=== PATIENT | female | born 1960 | race Caucasian/White ===

== ENCOUNTER 2017-11-05 13:20 | Outpatient (CLI) | payer OTHER ==
--- NOTE | 2017-11-05 15:32 | MMO ---
BILATERAL SCREENING MAMMOGRAM: Date: 11/05/17 INDICATION: Annual exam. COMPARISON: Prior exam dated 06/08/13 and 09/13/15. Diagnostic evaluation dated 07/01/13 was also reviewed. FINDINGS: Interpretation of this exam was assisted with computer-aided detection. There is a new focal asymmetry seen within the upper aspect of the right breast seen predominantly in the MLO projection in the mid to posterior depth. This is not localized on the CC projection. No pelon picious abnormality is seen within the left breast. There are benign-appearing calcifications bilater ally. IMPRESSION: BIRADS 0: Incomplete: Need Additional Imaging Evaluation and/or Prior Mammograms for Comparison New focal asymmetry within the upper aspect of the right breast, mid to posterior depth, seen only on the MLO projection, requires further evaluation. Recommend diagnostic mammographic evaluation with p otential for right breast ultrasound. The facility will notify patient of need for additional imaging services. POS: ABRAHAM
== END 2017-11-05 13:21 | disposition home or self-care (01) ==
LOC: SCSMAMMO 13:20
PROVIDERS: ATTEND Family Medicine
DX: Z12.31 Encounter for screening mammogram for malignant neoplasm of breast (principal)
CPT/HCPCS: 77067

== ENCOUNTER 2017-11-15 15:13 | Outpatient (CLI) | payer OTHER | END 2017-11-15 15:14 | disposition home or self-care (01) | LOC: BICMAMMO 15:13 | PROVIDERS: ATTEND Family Medicine | DX: Z12.31 Encounter for screening mammogram for malignant neoplasm of breast (principal); Z80.3 Family history of malignant neoplasm of breast | CPT/HCPCS: G0279 ==

== ENCOUNTER 2018-02-11 05:53 | Day surgery (SDC) | payer OTHER ==
[2018-02-10 14:02] VITALS: BMI 18.6
--- NOTE | 2018-02-11 03:40 | HP ---
SHORT STAY HISTORY AND PHYSICAL DATE OF ADMISSION: 02/11/2018 HISTORY OF PRESENT ILLNESS: This is a 57-year-old female comes for a colonoscopy for colon cancer screening. The patient has no specific GI symptoms. There is no family history of colon can cer. ALLERGIES: PENICILLIN. SOCIAL HISTORY: Patient does not smoke or drink alcohol. MEDICAL ILLNESSES: 1. Hypertension, not on any medication. 2. Post-traumatic stress disorder. 3. Migraine. 4. Anxiety-depression. 5. Hypothyroidism. 6. Hyperlipidemia. 7. Appendectomy. 8. Hysterectomy. 9. Bladder repair. 10. TMJ. 11. Knee surgery. PHYSICAL EXAMINATION: VITAL SIGNS: Pulse is 76, blood pressure in my office is very high at 170/110. This was almost a mo nth ago. HEENT: Conjunctivae clear. NECK: Supple. CARDIOVASCULAR SYSTEM: First and second heart sounds normal. LUNGS: Clear to auscultation. ABDOMEN: Soft to palpate. No organomegaly. No tenderness. No masses. EXTREMITIES: Reveal no edema. ADMITTING DIAGNOSIS: A 57-year-old female comes for a colonoscopy for colon cancer [place]
--- NOTE | 2018-02-11 08:55 | OP ---
DATE OF PROCEDURE: 02/11/2018 SURGEON: Mike Napier M.D. OPERATIVE PROCEDURE: Colonoscopy. PREOPERATIVE DIAGNOSIS: The patient is a 57-year-old female undergoing colonoscopy for colon cancer screening. POSTOPERATIVE DIAGNOSES: 1. Normal colonoscopy except hemorrhoids. 2. Tortuous and redundant colon with retained fecal material. PROCEDURE IN DETAIL: The patient was placed on her left lateral position and was given sedation by Anesthesia Department. A rectal exam was done before the scope was advanced into the rectum. No lesion felt on rectal exam. A Pentax video colonoscope was introduced into the rectum and advanced all the way into the cecum. The exam was difficult because of the fact that she had fecal material throughout the colon. Water was used to irrigate and wash out and suctioned. A couple of times the suction port got blocked and it was really deep blocked. The scope was removed after reaching 7 cm because the suction was not working and I could not interpret there. Again, the suction was pulled to irrigate and cleaning the suction port. The scope advanced back into the colon all the way into the cecum. Abdominal compression used and advanced all the way into the cecum. The patient had some material in the colon. The ileocecal area, cecum, ascending colon, no pathology seen. The mucosa appears normal throughout the colon. The hepatic flexure, transverse colon, splenic flexure, descending colon, no pathology seen. Rectum showed hemorrhoids. DISCHARGE PLANNING: This is a 57-year-old female who came in for colonoscopy for colon cancer screening. The patient underwent colonoscopy and was found to have hemorrhoids, no other pathology seen. The exam was difficult because of the fact that she had retained fecal material and also the colon was redundant and tortuous. DISCHARGE RECOMMENDATIONS: 1. The patient was advised to call me if she develops abdominal pain, hematochezia. 2. Repeat colonoscopy in 10 years. TYRA
== END 2018-02-11 09:58 | disposition home or self-care (01) ==
LOC: SDC 05:53
PROVIDERS: ATTEND Internal Medicine Gastroenterology
PROC: 0DJD8ZZ Inspection of Lower Intestinal Tract, Via Natural or Artificial Opening Endoscopic (ICD-10-PCS; principal; 2018-02-11)
DX: Z12.11 Encounter for screening for malignant neoplasm of colon (principal); K64.9 Unspecified hemorrhoids; Q43.8 Other specified congenital malformations of intestine; I10 Essential (primary) hypertension; F43.10 Post-traumatic stress disorder, unspecified; G43.909 Migraine, unspecified, not intractable, without status migrainosus; F41.8 Other specified anxiety disorders; E03.9 Hypothyroidism, unspecified; E78.5 Hyperlipidemia, unspecified; Z79.899 Other long term (current) drug therapy; Z88.0 Allergy status to penicillin; Z91.040 Latex allergy status

== ENCOUNTER 2018-08-28 14:21 | Outpatient (CLI) | payer OTHER ==
--- NOTE | 2018-08-28 15:16 | RAD ---
LUMBAR SPINE 2 VIEWS: HISTORY: Acute low back pain. FINDINGS/IMPRESSION: There is levoscoliosis of the lumbar spine. Mild degenerative changes are present. No compression f racture, subluxation, or bony destruction is seen. POS: ABRAHAM
== END 2018-08-28 14:22 | disposition home or self-care (01) ==
LOC: BICRAD 14:21
PROVIDERS: ATTEND Family Medicine
DX: M54.5 Low back pain (principal); M47.816 Spondylosis without myelopathy or radiculopathy, lumbar region; M41.9 Scoliosis, unspecified
CPT/HCPCS: 72100

== ENCOUNTER 2019-10-05 19:23 | Emergency (ER) | payer OTHER ==
[2019-10-05] MEDS ORDERED: HYDROcodone/Acetaminophen 5/325 mg Tablet ONE (20:19)
--- NOTE | 2019-10-05 20:27 | RAD ---
RIGHT FOOT THREE VIEWS: History: Right foot pain. FINDINGS/IMPRESSION: There is no displaced fracture involving the proximal metaphysis of the 3rd metatarsal. There is also a tip fracture involving the medial aspect of the base of the 1st metatarsal with fracture line exte nding into the articular surface. No significant displacement is seen. POS: OFF
== END 2019-10-05 21:10 | disposition home or self-care (01) ==
LOC: ERS 19:23
DX: S92.315A Nondisplaced fracture of first metatarsal bone, left foot, initial encounter for closed fracture (principal); S92.334A Nondisplaced fracture of third metatarsal bone, right foot, initial encounter for closed fracture; I10 Essential (primary) hypertension; M10.9 Gout, unspecified; G62.9 Polyneuropathy, unspecified; G43.909 Migraine, unspecified, not intractable, without status migrainosus; Z79.899 Other long term (current) drug therapy; X58.XXXA Exposure to other specified factors, initial encounter
CPT/HCPCS: 28475

== ENCOUNTER 2024-02-03 12:22 | Outpatient (CLI) | payer MEDICARE, OTHER | END 2024-02-03 12:23 | disposition home or self-care (01) | LOC: BICMAMMO 12:22 | PROVIDERS: ATTEND Family Medicine | DX: Z12.31 Encounter for screening mammogram for malignant neoplasm of breast (principal); Z80.3 Family history of malignant neoplasm of breast | CPT/HCPCS: 77063; 77067 ==